=== PATIENT | female | born 1960 | race Caucasian/White ===

== ENCOUNTER 2021-02-26 15:07 | Emergency (ER) | payer BC ==
[~2021-02-26] VITALS: Ht 170.2 cm; Wt 163.6 kg
[2021-02-26 16:57] LABS: BASOPHILS % (AUTO) 0.6 % (0-1); EOSINOPHILS % (AUTO) 0.5 % (0-6); HEMATOCRIT 45.1 % (35.0-45.0); HEMOGLOBIN 15.2 g/dl (12.0-16.0); LYMPHOCYTES # (AUTO) 1.3 X10'3 (1.1-4.8); LYMPHOCYTES % (AUTO) 17.8 % (21-51); MEAN CORPUSCULAR HEMOGLOBIN 29.5 PG (27.0-31.0); MEAN CORPUSCULAR HGB CONC 33.6 g/dL (33.0-36.5); MEAN CORPUSCULAR VOLUME 87.8 FL (78-98); MEAN PLATELET VOLUME 8.1 FL (7.4-10.4); MONOCYTES # (AUTO) 0.6 X10'3 (0-0.9); MONOCYTES % (AUTO) 8.6 % (2-12); NEUTROPHILS # (AUTO) 5.3 X10'3 (1.8-7.7); NEUTROPHILS % (AUTO) 72.5 % (42-75); PLATELET COUNT 298 X10'3 (140-440); RED BLOOD COUNT 5.14 X10'6 (4.20-5.60); RED CELL DISTRIBUTION WIDTH 13.3 % (11.5-14.5); WHITE BLOOD COUNT 7.3 X10'3 (4.5-11.0)
[2021-02-26 17:28] LABS: ALANINE AMINOTRANSFERASE 26 U/L (12-78); ALBUMIN 3.8 G/DL (3.4-5.0); ALKALINE PHOSPHATASE 80 IU/L (46-116); ANION GAP 11 (8-16); ASPARTATE AMINO TRANSFERASE 16 U/L (10-37); BILIRUBIN,TOTAL 0.8 MG/DL (0.1-1.0); BLOOD UREA NITROGEN 19 MG/DL (7-18); BUN/CREATININE RATIO 24.7 (6.6-38.0); CALCIUM 8.8 MG/DL (8.5-10.1); CHLORIDE 99 MMOL/L (99-107); CREATININE 0.77 MG/DL (0.40-0.90); GLUCOSE 174 MG/DL (70-104); POTASSIUM 3.9 MMOL/L (3.5-5.1); SODIUM 137 MMOL/L (135-145); TOTAL CARBON DIOXIDE 26.9 MMOL/L (24-32); TOTAL PROTEIN 7.7 G/DL (6.4-8.2); eGFR 76 ML/MIN
[2021-02-26] MEDS ORDERED: acetaminophen 325mg tablet PO ONE (23:50)
[2021-02-26] MEDS ORDERED: normal saline 1000ml 1,000 ML IV ONE (23:50)
[2021-02-26] MEDS ORDERED: proCHLORperazine 10 MG/2 ml inj IV ONE (23:50)
[2021-02-26] MEDS ORDERED: ketorolac trometh. 30mg/ml inj. IV ONE (23:50)
[2021-02-26] MEDS ORDERED: CefTRIAXone/D5W-Rocephin 1gm 50 ML IV ONE (23:55)
--- NOTE | 2021-02-27 01:12 | NUR ---
pt sleeping on right side on [facility]. v/s stable, will continue to monitor.
[2021-02-27 03:48] VITALS: BP 122/92
== END 2021-02-27 03:53 | disposition home or self-care (01) ==
LOC: ER 15:08
DX: M79.10 Myalgia, unspecified site (principal); R51.9 Headache, unspecified; R11.0 Nausea; R10.84 Generalized abdominal pain; E11.9 Type 2 diabetes mellitus without complications; Z88.8 Allergy status to other drugs, medicaments and biological substances; Z88.2 Allergy status to sulfonamides; Z88.1 Allergy status to other antibiotic agents; Z91.030 Bee allergy status
CPT/HCPCS: 36415; 71045; 80053; 83880; 84484; 85025; 93005; 96365; 96366; 96375; 99285; J0696; J0780; J1885; J7030

== ENCOUNTER 2024-08-08 12:01 | Day surgery (SDC) | payer BC ==
[2024-08-04 12:51] LABS: BASOPHILS % (AUTO) 0.4 % (0-1); EOSINOPHILS # (AUTO) 0.1 X10'3 (0-0.9); EOSINOPHILS % (AUTO) 1.7 % (0-6); HEMATOCRIT 43.7 % (35.0-45.0); HEMOGLOBIN 14.7 g/dl (12.0-16.0); LYMPHOCYTES # (AUTO) 1.8 X10'3 (1.1-4.8); LYMPHOCYTES % (AUTO) 24.8 % (21-51); MEAN CORPUSCULAR HEMOGLOBIN 29.9 PG (27.0-31.0); MEAN CORPUSCULAR HGB CONC 33.7 g/dL (33.0-36.5); MEAN CORPUSCULAR VOLUME 88.7 FL (78-98); MEAN PLATELET VOLUME 7.7 FL (7.4-10.4); MONOCYTES # (AUTO) 0.5 X10'3 (0-0.9); MONOCYTES % (AUTO) 6.7 % (2-12); NEUTROPHILS # (AUTO) 4.9 X10'3 (1.8-7.7); NEUTROPHILS % (AUTO) 66.4 % (42-75); PLATELET COUNT 306 X10'3 (140-440); RED BLOOD COUNT 4.92 X10'6 (4.20-5.60); RED CELL DISTRIBUTION WIDTH 12.9 % (11.5-14.5); WHITE BLOOD COUNT 7.4 X10'3 (4.5-11.0)
[2024-08-04 13:05] LABS: ALBUMIN 3.4 G/DL (3.4-5.0); ANION GAP 9 (8-16); BLOOD UREA NITROGEN 23 MG/DL (7-18); BUN/CREATININE RATIO 31.5 (10.0-20.0); CALCIUM 9.3 MG/DL (8.5-10.1); CHLORIDE 103 MMOL/L (99-107); CREATININE 0.73 MG/DL (0.40-0.90); GLUCOSE 158 MG/DL (70-104); POTASSIUM 4.1 MMOL/L (3.5-5.1); SODIUM 142 MMOL/L (135-145); TOTAL CARBON DIOXIDE 29.8 MMOL/L (24-32); eGFR 81 ML/MIN
[2024-08-04 13:06] LABS: APTT 27 SECONDS (22-32); PROTHROMBIN TIME 10.4 SECONDS (9.0-12.0)
[2024-08-04 13:17] LABS: CHOL/HDL RATIO 2.9 (0.00-4.99); CHOLESTEROL 174 MG/DL (0-200); HDL CHOLESTEROL 60 MG/DL (35-60); LDL CHOLESTEROL 80 MG/DL (50-100); TRIGLYCERIDES 197 MG/DL (20-135)
[~2024-08-08] VITALS: Ht 170.2 cm; Wt 122.2 kg
[2024-08-08] VITALS (10 sets, daily range): BP systolic 96–174; BP diastolic 61–86; PULSE 54–75; RESP 12–16; TEMP 98.9; O2SAT 93–97
[2024-08-08] MEDS ORDERED: LORazepam 0.5 MG tablet PO PRN (12:20)
[2024-08-08] MEDS ORDERED: diphenhydrAMINE 25mg capsule PO PRN (12:20)
[2024-08-08] MEDS ORDERED: normal saline 1,000 ML IV SCH (12:20)
[2024-08-08] MEDS ORDERED: HYDR-3964 PO (12:47)
[2024-08-08] MEDS ORDERED: BIOT25008 PO (12:47)
[2024-08-08] MEDS ORDERED: VERA240T92 PO (12:47)
[2024-08-08] MEDS ORDERED: MULT-1085 PO (12:47)
[2024-08-08] MEDS ORDERED: EVOL140S2 SQ (12:47)
[2024-08-08] MEDS ORDERED: HYDR25TA4 PO (12:47)
[2024-08-08] MEDS ORDERED: LACT1CAP65 PO (12:47)
[2024-08-08] MEDS ORDERED: ACET-812 PO (12:47)
[2024-08-08] MEDS ORDERED: CYAN-116 PO (12:47)
[2024-08-08] MEDS ORDERED: cbd (12:47)
[2024-08-08] MEDS ORDERED: INSU100I29 SQ (12:47)
[2024-08-08] MEDS ORDERED: CINN500C15 (12:47)
[2024-08-08] MEDS ORDERED: CIDE500T PO (12:47)
[2024-08-08] MEDS ORDERED: INSU100C11 (12:47)
[2024-08-08] MEDS ORDERED: NITR0.4T48 SL (12:47)
[2024-08-08] MEDS ORDERED: POTA-192 PO (12:47)
[2024-08-08] MEDS ORDERED: GABA-530 PO (12:47)
[2024-08-08] MEDS ORDERED: LIRA0.6P3 SQ (12:47)
[2024-08-08] MEDS ORDERED: FLAX1CAP4 PO (12:47)
[2024-08-08] MEDS ORDERED: heparin 1,000unit/ml 10ml vial 10 ML ONE ×2 (14:21→15:24)
[2024-08-08] MEDS ORDERED: verapamil 2.5 mg/ml inj IV ONE (14:21)
[2024-08-08] MEDS ORDERED: midazolam 1 mg/ML 2ml injection ONE (14:21)
[2024-08-08] MEDS ORDERED: fentaNYL/PF 50MCG/1 ML 2ML syringe ONE (14:21)
[2024-08-08] MEDS ORDERED: LIDOcaine 1% (10mg/ml) 2ml vial ONE (14:21)
[2024-08-08] MEDS ORDERED: iohexol 350MG/ML 100ml bottle IV ONE ×3 (14:21→15:38)
[2024-08-08] MEDS ORDERED: nitroGLYCERIN 500mcg/5mL D5W 5 ML IV ONE (14:22)
[2024-08-08] MEDS ORDERED: dextrose 50%-water 50ml dispensing syringe IV ONE (15:05)
[2024-08-08] MEDS ORDERED: aspirin 325mg tablet ONE (15:42)
[2024-08-08] MEDS ORDERED: clopidogrel 300mg tablet ONE (15:42)
[2024-08-08] MEDS: proCHLORperazine 10 MG/2 ml inj IV ONE (16:48)
[2024-08-08] MEDS ORDERED: ASPI-1265 PO (16:59)
[2024-08-08] MEDS ORDERED: CLOP75TA33 PO (16:59)
== END 2024-08-08 18:35 | disposition home or self-care (01) ==
LOC: SSTAY O 12:01
PROVIDERS: ATTEND Internal Medicine Interventional Cardiology
DX: R07.2 Precordial pain (principal); I25.10 Atherosclerotic heart disease of native coronary artery without angina pectoris; I45.10 Unspecified right bundle-branch block; I10 Essential (primary) hypertension; E11.9 Type 2 diabetes mellitus without complications; E78.00 Pure hypercholesterolemia, unspecified; E66.01 Morbid (severe) obesity due to excess calories; G47.33 Obstructive sleep apnea (adult) (pediatric); G43.909 Migraine, unspecified, not intractable, without status migrainosus; Z79.891 Long term (current) use of opiate analgesic; Z79.899 Other long term (current) drug therapy; Z68.41 Body mass index [BMI] 40.0-44.9, adult; Z88.1 Allergy status to other antibiotic agents; Z88.2 Allergy status to sulfonamides; Z88.5 Allergy status to narcotic agent; Z88.8 Allergy status to other drugs, medicaments and biological substances
CPT/HCPCS: 36415; 80048; 80061; 82948; 85025; 85610; 85730; 93005; 93458; 93571; 99152; 99153; A6258; C1874; C9600; J0780; J1644; J2003; J2250; J3010; J3490; J7030; Q9967; A6402; C1725; C1751; C1769; C1894